=== PATIENT | female | born 1970 | race Native Hawaiian/Other Pacific Islander ===

== ENCOUNTER 2024-10-13 22:43 | Emergency (ER) | payer BC, SELFPAY ==
[2024-10-13 22:44] VITALS: BP 144/72; PULSE 81; RESP 16; TEMP 36.2; O2SAT 99; BMI 25.9
--- NOTE | 2024-10-13 23:41 | EDS_ITS ---
HPI History of Present Illness Chief Complaint: Eye Problem Informant: patient and spouse/S.O. Narrative Narrative: Patient is a 54-year-old female who reports no significant past medical history. She states a few hours ago she was sitting outside when the wind blew and she fell like something went into her left eye. She states that there has been persistent irritation to the left eye with increased tearing and light sensitivity since that time. She has concern for a retained foreign body and therefore comes in for evaluation. Patient denies any history of contact lens use. PFSH PFSH Medical History no medical history Home Medications ?Medication ?Instructions ?Recorded ?Last Taken ?Type ciprofloxacin HCl 0.3 % eye drops 2 drp LEFT EYE 4X/DA Y 7 days #10 mL 10/13/24 Unknown Rx Allergy/AdvReac Type Severity Reaction Status Date / Time Penicillins Allergy Mild Rash Verified 10/13/24 22:44 Social History Smoking Status: Never smoker ROS ROS ED Constitutional Constitutional ED: Denies chills or fever(s) Eyes Eyes: Reports blurry vision and other Details: Positive redness tearing pain and blurry vision to left eye ENT ENT ED: Denies sore throat Cardiovascular Cardiovascular: Denies chest pain Respiratory/Chest Respiratory/Chest: Denies cough or dyspnea Gastrointestinal Gastrointestinal: Denies abdominal pain, diarrhea, nausea or vomiting Musculoskeletal Musculoskeletal: Denies myalgias Integumentary Denies rash Neurologic Neurologic: Denies headache(s) Hematologic/Lymphatic Hematologic/Lymphatic: Denies easy bleeding or easy bruising EXAM Physical Exam Const Vital Signs: 10/13/24 22:44 Temperature 97.2 F L Temperature Source Temporal Pulse Rate 81 Respiratory Rate 16 Blood Pressure 144/72 H Blood Pressure Mean 96 Pulse Ox 99 Oxygen Delivery Method Room Air Positive well nourished and well developed General Appearance ED: well developed HEENT HEENT Narrative: Normocephalic atraumatic Eyes PERRL and EOMs intact bilaterally Eyes Narrative: Pupils are equal reactive to light and accommodation extraocular muscles are intact There is scleral injection with increased tearing to the left eye The upper lid was everted there is no retained foreign object Slit-lamp exam reveals a corneal abrasion around the 10 to 11 o'clock position covering the iris and a portion of the pupil Negative Bessie sign Neck supple Resp normal respiratory effort and clear to auscultation bilaterally Cardio regular rate and regular rhythm Extremity normal to inspection Neuro oriented x3, CN's II-XII intact bilaterally, moves all extremities and no sensory deficits noted Sensorium / Orientation: alert Motor Exam: strength 5/5 throughout Psych mental status grossly normal Skin no rashes or lesions noted MDM MDM MDM Narrative Medical decision making narrative: The patient arrived to the ER slightly hypertensive but otherwise with stable vitals. She reported sensation of foreign object within the left eye. She denies contact lens use. Concern is for corneal abrasion versus retained foreign object versus globe puncture. History and exam is most consistent with abrasion with potential foreign body. Exam revealed a corneal abrasion which does correlate with her symptoms but no obvious retained foreign body or signs of globe rupture. Therefore there is no need for emergent ophthalmology consultation. Patient also reported complete relief of pain with tetracaine which correlates with the abrasion. She does not wear contact lenses and therefore has lower risk for infection but this is still a possibility so should be placed on ciprofloxacin eyedrops to prevent this. However at this time as there is no foreign body to remove no signs of globe rupture and she has had improvement of symptoms she is otherwise safe for discharge History & Record Review Discussion w/independent historian: Patient and Significant other Discharge Plan Triage Chief Complaint: Eye Problem ED Provider: Collin Shipman Dx/Rx/DC Orders Clinical Impression: Corneal abrasion, left Instructions: ED Corneal Abrasion Prescriptions: New ciprofloxacin HCl 0.3 % drops 2 drp LEFT EYE 4X/DAY 7 Days Qty: 10 0RF Primary Care Provider: MATEUSZ BRANCH Referrals: MATEUSZ BRANCH [Other] Activity Restrictions/Additional Instructions: Your exam shows a abrasion to the cornea without any obvious signs of of retained foreign body. Use the antibiotic as directed to prevent secondary infection. Please follow-up with your eye doctor for repeat evaluation. Symptoms should improve after 3 to 5 days. If you have any further concerns return to the ER for repeat evaluation Print Language: [place] Disposition Disposition: Home, Self Care Discharge Date/Time: 10/13/24 23:54
[2024-10-13 23:44] VITALS: BP 138/65; PULSE 84; RESP 16; TEMP 36.2; O2SAT 98
[2024-10-13] MEDS: Ciprofloxacin 0.3% 2.5ml Bottle 2 DRP LEFT EYE (23:50)
[2024-10-13] MEDS: Fluorescein 1 MG STRIP 1 STRIP LEFT EYE (23:51)
[2024-10-13] MEDS: Tetracaine 0.5% Ophthalmic Bottle 1 DRP LEFT EYE (23:51)
== END 2024-10-13 23:54 | disposition home or self-care (01) ==
PROVIDERS: Emergency Provider Emergency Medicine; Visit Provider Emergency Medicine
DX: S05.02XA Injury of conjunctiva and corneal abrasion without foreign body, left eye, initial encounter (principal); W44.9XXA Unspecified foreign body entering into or through a natural orifice, initial encounter
CPT/HCPCS: 99282